=== PATIENT | female | born 1985 | race Hispanic/Latino ===

== ENCOUNTER 2017-10-05 19:08 | Inpatient (IN) | payer OTHER ==
[2017-10-05] VITALS (18 sets, daily range): BP systolic 154–174; BP diastolic 96–111
[~2017-10-05] VITALS: Ht 162.6 cm; Wt 85.3 kg
--- NOTE | 2017-10-05 18:20 | NUR ---
PATIENT TO UNIT IN , FROM HOME VIA ER REGISTRATION, ACCOMAPNIED BY OB RN. WEIGHT AND HEIGHT OBTAINED. ESCORTED TO ROOM 253. CLEAN CATCH SPECIMEN OF URINE EXPLAINED AND OBTAINED. EFM COMMENCED. PATIENT GIVES HISTORY OF BROWNISH MUCUS PER VAGINA AND MILD LOWER ABDOMINAL PAIN. DENIES LEAKING OF AMNIOTIC FLUID, HEADACHE, VISUAL CHANGES. WILL EVALUATE AND NOTIFY MD PAULINO. 1835 159/101. SAME RECHECKED 165/105. 1850 165/111 DR BOATENG ON UNIT NOTIFIED. REPORT GIVEN TO LONNY GARCIA.
--- NOTE | 2017-10-05 19:00 | NUR ---
185:REPORT RECEIVED BY LUISRN. 1899: DR. BOATENG AT BEDSIDE. SVE DONE BY . MD DISCUSSED PLAN OF CARE WITH PT AND PT VERBALIZED UNDERSTANDING. CALL LIGHT IN REACH.
[~2017-10-05 19:08] MED LIST: BACTRIM DS1 TAB OR; BACTRIM DS1 TAB PO; CEPHALEXIN500 MG OR; FERRETTS325 MG PO; FLEXERIL PO; IBUPROFEN600 MG PO; LORTAB 5 OR; MACROBID100 MG PO; MIRALAX3350 N1 PO; NAPROSYN500 MG PO; NO HOME MEDS; NORCO1 TA1 PO; PRENATABS PO; PRENATAL1 TA1 PO; PREVACID30 M2 PO; TRAMADOL HCL50 MG OR; ULTRAM50 MG PO; VALIUM5 MG PO; VICOPROFEN PO
[2017-10-05 19:16] LABS: BARBITURATES NEGATIVE (NEGATIVE); COCAINE NEGATIVE (NEGATIVE); METHADONE NEGATIVE (NEGATIVE); OXCYCODONE NEGATIVE (NEGATIVE); TETRAHYDROCANNABIONOL NEGATIVE (NEGATIVE); TRICYLIC ANTIDEPRESSANTS NEGATIVE (NEGATIVE)
[2017-10-05 19:19] LABS: URINE BILIRUBIN - DIPSTICK NEGATIVE (NEGATIVE); URINE BLOOD DIPSTICK NEGATIVE (NEGATIVE); URINE COLOR YELLOW; URINE GLUCOSE - DIPSTICK NEGATIVE (NEGATIVE); URINE KETONE TRACE mg/dL (NEGATIVE); URINE LEUK ESTERASE NEGATIVE (NEGATIVE); URINE NITRITE - DIPSTICK NEGATIVE (Negative); URINE PROTEIN - DIPSTICK 100 mg/dL (NEG-TRACE); URINE SPECIFIC GRAVITY >=1.030
[2017-10-05 19:24] LABS: URINE CLARITY CLEAR
[2017-10-05 19:37] LABS: URINE SQUAMOUS EPITHELIAL CELL FEW EPI/hpf (0-FEW)
[2017-10-05 20:10] LABS: HEMATOCRIT 32.4 % (37.0-47.0); HEMOGLOBIN 10.8 g/dl (12.0-16.0); IMMATURE GRANULOCYTES 0.5 % (0.0-1.0); MEAN CELL VOLUME 87.1 fL CALC (80.0-100.0); MEAN CORPUSCULAR HGB CONC 33.3 g/L CALC (32.0-36.0); NEUT# 6.86 thou/uL (2.00-7.15); RED BLOOD COUNT 3.72 mill/uL (4.20-5.60); RED CELL DISTRI WIDTH 13.5 % (11.5-15.5)
[2017-10-05 20:25] LABS: ALBUMIN 3.3 g/dL (3.2-5.0); ALKALINE PHOSPHATASE 222 u/l (38-126); ANION GAP 12 (6-22 (CALC)); BILIRUBIN, TOTAL 0.5 mg/dL (0.0-1.4); BUN 12 mg/dL (7-17); BUN/CREATININE RATIO 21 (12-20 (CALC)); CALCIUM 9.2 mg/dL (8.4-10.2); CARBON DIOXIDE 21 mmol/l (22-30); CHLORIDE 110 mmol/l (95-108); CREATININE 0.6 mg/dL (0.5-1.0); GFR > 60 ML/MIN (>=60 (CALC)); GFR FOR AFR.AMER. > 60 ML/MIN (>=60 (CALC)); GLUCOSE 81 mg/dL (65-105); POTASSIUM 4.2 mmol/l (3.5-5.1); SGOT/AST 31 u/l (14-36); SGPT/ALT 36 u/l (9-52); SODIUM 139 mmol/l (137-146); TOTAL PROTEIN 6.1 g/dL (6.3-8.2)
--- NOTE | 2017-10-05 21:03 | NUR ---
1934:MAGNESIUM SULFATE GIVEN PER DR. BOATENG. SEE EMAR. 1950: ULTRASOUND HERE AT THIS TIME WITH PT. 1999: DR. BOATENG AT BEDSIDE. ULTRASOUND RESULT PROVIDED BY DEBORAH TO . PLAN CARE DISCUSSED WITH PT AND PT VERBALIZED UNDERSTANDING. 2102: SVE DONE BY /
--- NOTE | 2017-10-05 21:06 | NUR ---
2106: IUPC AND FSE APPLIED BY DR. BOATENG. PT TOLERATED WELL.
--- NOTE | 2017-10-05 22:20 | NUR ---
2200: PT IS RESTING IN BED. PT STATED PAIN IS 7/10 IN LOWER ABDOMEN. PT REFUSED PAIN MEDICATION AT THIS TIME. PT TAKES DEEP BREATHS DURING CONTRACTIONS. PT DENIES ANY NEEDS AT THIS TIME. 2220: PITOCIN STARTED AT 2 MILIUNITS/MIN PER MD ORDERS.
--- NOTE | 2017-10-05 22:27 | NUR ---
2220: PITOCIN STARTED AO PER MD ALEXANDRE. 2227: PITOCIN STOPPED DUE TO A PROLONGED DECEL. PT TURN TO RIGHT SIDE AND O2 APPLIED BY NONREBREATHER MASK AT 10L/MIN.
[2017-10-05] MEDS ORDERED: ACYCLOVIR200 MG PO (22:51)
[2017-10-05] MEDS ORDERED: MULTI-VITAMIN GUMMIE PO (22:51)
[2017-10-06] VITALS (45 sets, daily range): BP systolic 122–191; BP diastolic 68–103
--- NOTE | 2017-10-06 01:23 | NUR ---
PT IS ON LEFT SIDE. PT STATED PAIN IS A 8/10 IN LOWER ABDOMEN. PT DENIES ANY NEEDS AT THIS TIME.
--- NOTE | 2017-10-06 01:43 | NUR ---
MOVED PT VIA WHEELCHAIR TO BR#1. PT TAKES DEEP BREATHS DURING CONTRACTIONS. ASSISTED PT TO BED. PT TURN TO RIGHT SIDE. CALL LIGHT IN REACH.
--- NOTE | 2017-10-06 02:00 | NUR ---
FHR 120, ACCEL PRESENT, NO DECEL, VARIABILITY MINIMAL, CONTRACTIONS ARE 2-3 MIN APART. PALPATED ABDOMEN AND CONTRACTIONS ARE MODERATE/STRONG ANF RETURN TO SOFT.
--- NOTE | 2017-10-06 03:29 | NUR ---
0310: CHRISTOPHER POON IN ROOM DISCUSSED WITH PT ABOUT EPIDURAL. PT VERBALIZED UNDERSTANDING. 0315:TIMEOUT 0323:NUMBING 0327: CATH IN TEST DOSE:0329
--- NOTE | 2017-10-06 04:47 | NUR ---
0441:PT IS PUSHING DURING CONTRACTIONS. A MALE WAS BORN. DR. BOATENG IN ROOM. 0447: PLACENTA OUT.
--- NOTE | 2017-10-06 06:35 | NUR ---
0627: RADHA SAENZ ASSISTED PT WITH FERNANDA CARE AND OOB TO SIT IN THE SIDE OF BED . PT STATED THAT SHE DID NOT HAVE PAIN AT THIS TIME. 0635: PT MOVED TO ROOM 204 VIA WHEELCHAIR BY RADHA SAENZ AND SCD APPLIED.
--- NOTE | 2017-10-06 06:50 | NUR ---
REPORT GIVEN TO RADHA ALMODOVAR.
--- NOTE | 2017-10-06 11:00 | NUR ---
PT C/O INCREASED UTERINE CRAMPING, RATING PAIN LEVEL AT 8:10. MEDICATED ORDERED WITH MOTRIN 600 MG PO. IV MAINTAINED ORDERED. BURROUGHS CATH PATENT FOR BLOOD TINGED URIEN, URINE OUTPUT WNL/
--- NOTE | 2017-10-06 12:00 | NUR ---
PT VERBALIZED RELIEF OF PAIN FROM MOTRIN GIVEN EARLIER. NOW RATING DISCOMFORT LEVEL AT 3:10. SITTING UP IN BED EATING LUNCH.
--- NOTE | 2017-10-06 12:15 | NUR ---
PERICARE GIVEN IN BED. LOCHIA RUB MOD. NO CLOTS, BURROUGHS CATH PATENT FOR BLOOD TINGED URINE.
--- NOTE | 2017-10-06 14:30 | NUR ---
PT RESTING QUIETLY IN BED. DENIES ANY C/O DISCOMFORT AT THIS TIME. VS CHARTED. INFANT IN NURSERY. CALLBELL WITHIN REACH.
--- NOTE | 2017-10-06 15:40 | NUR ---
VS CHARTED. PT RESTING QUIELTY IN BED WITH EYES CLOSED, RESPIRATIONS UNLABORED; REFLEXES NOT PERFORMED AT THIS TIME SINCE PT IS SLEEPING. BURROUGHS CATH CONTINUES TO DRAIN BLOOD TINGED URINE; OUTPUT CONTINUES TO BE WNL.
--- NOTE | 2017-10-06 16:50 | NUR ---
PT CONTINUES RESTING QUIETLY IN BED WITH EYES CLOSED, RESPIRATIONS UNLABORED. IV LR WITH PITOCIN 20 UNITES CONTINUES INFUSING AT 125ML/HR AND MAGNESIUM SULFATE INFUSING AT 2MG/HR ON INFUSION PUMPS. IV SITE IN RH REMAINS WITHOUT S/S OF IV COMPLICATIONS. VS CHARTED; REFLEXES AND CLONUS NOT CHECKED AT THIS TIME DUE TO PT SLEEPING.
--- NOTE | 2017-10-06 18:30 | NUR ---
PERICARE WAS GIVEN IN BED. FUNDUS REMAINS FIRM AT UMBILICUS; LOCHIA RUBRA IS MODERATE WITH NO CLOTS EXPRESSED. BURROUGHS CATH PATENT FOR BLOOD TINGED URINE; PT VOIDING WNL. VS CHARTED. REFLEXES ARE +2 BILATERALLY, NO CLONUS. IV LR WITH PITOCIN 20 UNITS INFUSING AT 125M L/HR AND MAGNESIUN SULFATE INFUSING AT 50ML (2GMS)/HR ON INFUSION PUMPS; IV SITE IN RH REMAINS WITHOIUT S/S OF IV COMPLICATIONS. PT ASSISTED OOB TO CHAIR, INFANT BROUGHT TO ROOM. PT NOW SITTING IN CHAIR WITH INFANT IN ARMS. DENIES ANY C/O DISCOMFORT AT THIS TIME. CALLBELL WITHIN REACH.
--- NOTE | 2017-10-06 19:15 | NUR ---
REPORT GIVEN TO Allan TOPETE RN.
--- NOTE | 2017-10-06 19:20 | NUR ---
REPORT RECEIVED FROM NISHI PATINO RN ON PT STATUS. MOTHER SITTING IN RECLINER HOLDING . NO COMPLAINTS.
--- NOTE | 2017-10-06 21:00 | NUR ---
PT SITTING IN RECLINER. IV'S CONTINUE TO INFUSE PER MED PUMPS. MAGNESIUM SULFATE AT 50ML/HR. PITOCIN INFUSING AT 125CC/HR. IV SITE WNL. BURROUGHS CATHETER DRAINING BLOOD TINGED URINE. MEASURING OUTPUT, VS AND IV INFUSION EVERY HOUR. BED IN LOW POSITION AND CALL LIGHT WITHIN REACH. AND SONS VISITING. MEDICATED WITH MOTRIN.
--- NOTE | 2017-10-06 22:10 | NUR ---
MOTHER . NO DISTRESS NOTED. STATES PAIN MEDICATION HELPED. BED IN LOW POSITION AND CALL LIGHT WITHIN REACH.
[2017-10-07] VITALS (12 sets, daily range): BP systolic 129–148; BP diastolic 76–93
--- NOTE | 2017-10-07 00:01 | NUR ---
CONTINUES ON HOURLY VS, URINE OUTPUT AND MAGNESIUM PROTOCOL. IV'S INFUSING PER MED PUMPS. URINE REMAINS BLOOD TINGED WITH OLD BLOOD. NO BRIGHT RED BLOOD NOTED IN URINE. BURROUGHS CATHETER ATTATCHED WITH STRAP. NO COMPLAINTS.
--- NOTE | 2017-10-07 03:59 | NUR ---
CBC AND MAGNESIUM LEVEL DRAWN FROM LEFT AC WITHOUT DIFFICULTY. MINIMAL BLEEDING AT SITE. PT DROWSY BUT AROUSES EASILY. REMAINS AT BEDSIDE IN CRIB.
[2017-10-07 05:20] LABS: HEMATOCRIT 26.6 % (37.0-47.0); HEMOGLOBIN 8.9 g/dl (12.0-16.0); IMMATURE GRANULOCYTES 0.5 % (0.0-1.0); MEAN CELL VOLUME 87.5 fL CALC (80.0-100.0); MEAN CORPUSCULAR HGB 29.3 pG CALC (26.0-32.0); MEAN CORPUSCULAR HGB CONC 33.5 g/L CALC (32.0-36.0); NEUT# 5.56 thou/uL (2.00-7.15); RED BLOOD COUNT 3.04 mill/uL (4.20-5.60); RED CELL DISTRI WIDTH 13.9 % (11.5-15.5)
--- NOTE | 2017-10-07 06:00 | NUR ---
PT SLEEPING. NO DISTRESS NOTED. RESP EVEN AND UNLABORED.
--- NOTE | 2017-10-07 07:00 | NUR ---
BEDSIDE REPORT COMPLETED WITH HALEY FERNANDEZ RN ON PT STATUS.
--- NOTE | 2017-10-07 08:05 | NUR ---
PT SITS QUIETLY IN BED. HOLDS INFANT, POSITIVE BONDING. PT DENIES VISUAL DISTURBANCE, DENIES EPIGASTRIC PAIN.
--- NOTE | 2017-10-07 09:00 | NUR ---
DR BOATENG IN TO SEE PT, BURROUGHS REMOVED, DRAINED BLOOD TINGED URINE, MD AWARE. IV, IV MAGNESIUM DISCONTINUED ORDERED.
--- NOTE | 2017-10-07 11:30 | NUR ---
PT SITS QUIELTY IN BED, HAS URINATED W/O PROBLEM, SL PINK TINGED URINE. DID FERNANDA CARE. C/O SL H/A.
--- NOTE | 2017-10-07 13:16 | NUR ---
PT SITS ON SIDE OF BED FEEDS , MEDICATED FOR H/A WITH MOTRIN.
--- NOTE | 2017-10-07 14:15 | NUR ---
PT DENIES H/A, DENIES VISUAL DISTURBANCE. WAS MEDICATED FOR H/A, AT 1315.
--- NOTE | 2017-10-07 15:13 | NUR ---
PT SHOWERED W/O PROBLEM.
--- NOTE | 2017-10-07 17:00 | NUR ---
DENIES H/A, GIVEN SNACK OF PUDDING.
--- NOTE | 2017-10-07 17:45 | NUR ---
PT SITS IN BED, HOLDING INFANT, STATES SHE WILL WATCH VIDEOS LATER.
--- NOTE | 2017-10-07 19:00 | NUR ---
REPORT TO ONCOMING NURSE.
--- NOTE | 2017-10-07 20:00 | NUR ---
BEDSIDE REPORT RECEIVED FROM RADHA DE LEON. PT SITTING UP ON EDGE OF BED HOLDING INFANT. DENIES PAIN CURRENTLY. REPSIRATIONS EVEN AND UNLABORED ON ROOM AIR. PT DECLINED STOOL SOFTNER; STATES THAT SHE HAS HAD A REGULAR BOWEL MOVEMENT THAT WAS SOFT. 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 PLAN OF CARE DISCUSSED. PT UPPER SORBIAN SPEAKING ONLY. ENCOURAGED TO VERBALIZE CONCERNS. STATES UNDERSTANDING. SAFETY MEASURES IN PLACE. CALL LIGHT SYSTEM REVIEWED AND IN REACH.
--- NOTE | 2017-10-08 00:04 | NUR ---
PT SITTING UP IN BED HOLDING BABY. C/O MILD HEADACHE; MOTRIN GIVEN. WILL REASSESS. NO OTHER COMPLAINTS OFFERED. SAFETY MEASURES IN PLACE. CALL LIGHT WITHIN REACH.
--- NOTE | 2017-10-08 03:18 | NUR ---
PT SLEEPING SOUNDLY. NO SIGNS OF DISTRESS. RESP EVEN AND UNLABORED.
[2017-10-08 05:00] VITALS: BP 178/86
--- NOTE | 2017-10-08 05:00 | NUR ---
Patient is resting quietly and in no acute distress. Call light within reach. Infant in open crib and resting quietly in no distress.
--- NOTE | 2017-10-08 06:15 | NUR ---
VS: 98.2ax-120-44; Weight: 6 lb 12 oz = 3068 grams. in no distress. Mom requested a bottle of Enfamil for which the baby took 2 oz - tolerated very well; no emesis. Two diapers had yellow-seedy stool and moderate amount of urine. Mom had changed the diapers. Continue to monitor ; positive bonding observed.
--- NOTE | 2017-10-08 06:16 | NUR ---
Above nursing note information was in regard to the Baby Boy Steward-Olivera; morning assessment and observations.
--- NOTE | 2017-10-08 08:00 | NUR ---
Head to toe assessment performed and was within normal range. Mom denied being in any major discomfort: pain 12/26. VS: 97.8-76-20; BP 178/86. Hep lock in right hand intact. Encouraged mom to eat breakfast, drink fluids, and may take a shower this a.m. She speaks a little German. Positive bonding observed as she held her infant and fed him a bottle of Enfamil.
[2017-10-08 09:30] VITALS: BP 153/94
--- NOTE | 2017-10-08 11:30 | NUR ---
In preparation for Discharge, a staff interpreter came up from the Emergency Department. Patient received the flu and Tdap vaccines as verified by her Consent Forms. Copies of the Discharge papers given to mom; she verified that she had the correct infant, ID Bracelets matched, and she signed the infant's footprint sheet. Lunch arrived, her and two sons are here to take her and the baby home. Pending discharge.
[2017-10-08] MEDS ORDERED: LABETALOL100 MG PO (11:50)
[2017-10-08] MEDS ORDERED: IBUPROFEN600 MG PO (11:50)
--- NOTE | 2017-10-08 13:00 | NUR ---
Mom and baby were both discharged home in good condition. No problems encountered, no complaints voiced by patient or family members. Transported via wheelchair, the mom as she carried the infant in the car seat, downstairs to their vehicle. Mom had all of her Discharge Instructions and prescriptions.
== END 2017-10-08 13:00 | disposition home or self-care (01) | DRG 774 ==
LOC: OB 19:08 → OBOP 19:08 → OB 19:10
PROVIDERS: ADMIT Obstetrics & Gynecology; ATTEND Obstetrics & Gynecology
PROC: 3E0P3VZ Introduction of Hormone into Female Reproductive, Percutaneous Approach (ICD-10-PCS; principal; 2017-10-05)
PROC: 10907ZC Drainage of Amniotic Fluid, Therapeutic from Products of Conception, Via Natural or Artificial Opening (ICD-10-PCS; 2017-10-05)
PROC: 10E0XZZ Delivery of Products of Conception, External Approach (ICD-10-PCS; 2017-10-06)
DX: O14.14 Severe pre-eclampsia complicating childbirth (principal); O98.32 Other infections with a predominantly sexual mode of transmission complicating childbirth; A60.00 Herpesviral infection of urogenital system, unspecified; Z37.0 Single live birth; Z3A.39 39 weeks gestation of pregnancy
CPT/HCPCS: J2540

== ENCOUNTER 2019-11-03 10:16 | Emergency (ER) | payer SELFPAY ==
[~2019-11-03] VITALS: Ht 162.6 cm; Wt 81.0 kg
[~2019-11-03 10:16] MED LIST changes: +ACYCLOVIR200 MG PO; +LABETALOL100 MG PO; +MULTI-VITAMIN GUMMIE PO
[2019-11-03] MEDS ORDERED: CYCLOBENZAPR5 MG PO (11:30)
[2019-11-03 12:25] VITALS: BP 131/73
== END 2019-11-03 12:25 | disposition home or self-care (01) | DRG 552 ==
LOC: ED 10:16
DX: M54.32 Sciatica, left side (principal)

== ENCOUNTER 2019-12-13 | Emergency (ER) | payer SELFPAY ==
[~2019-12-13] MED LIST changes: +CYCLOBENZAPR5 MG PO
[2019-12-13] MEDS ORDERED: KEFLEX500 M1 PO (21:32)
[2019-12-13] MEDS ORDERED: HYDROCO/APAP1 TA9 PO (21:32)
== END 2019-12-13 22:30 | disposition home or self-care (01) | DRG 603 ==
DX: L02.31 Cutaneous abscess of buttock (principal)

== ENCOUNTER 2021-02-17 | Emergency (ER) | payer SELFPAY ==
[~2021-02-17] MED LIST changes: +HYDROCO/APAP1 TA9 PO; +KEFLEX500 M1 PO
== END 2021-02-17 20:03 | disposition home or self-care (01) | DRG 866 ==
DX: B34.9 Viral infection, unspecified (principal); Z20.822 Contact with and (suspected) exposure to COVID-19

== ENCOUNTER 2021-07-09 17:05 | Emergency (ER) | payer OTHER ==
[~2021-07-09] VITALS: Ht 162.6 cm; Wt 75.0 kg
[2021-07-09] MEDS ORDERED: AMOXICILLIN500 MG PO (21:47)
[2021-07-09 21:49] VITALS: BP 132/85
== END 2021-07-09 22:25 | disposition home or self-care (01) | DRG 179 ==
LOC: ED 17:05
DX: U07.1 COVID-19 (principal)

== ENCOUNTER 2022-12-04 15:19 | Emergency (ER) | payer SELFPAY ==
[2022-12-04] VITALS (12 sets, daily range): BP systolic 110–130; BP diastolic 73–96
[~2022-12-04] VITALS: Ht 162.6 cm; Wt 81.0 kg
[~2022-12-04 15:19] MED LIST changes: +AMOXICILLIN500 MG PO
[2022-12-04 18:32] LABS: BASO% 0.4 % (0-3); EOS% 1.3 % (0-8); IMMATURE GRANULOCYTES 0.2 % (0.0-5.0); LYMPH% 19.3 % (15-41); MEAN CELL VOLUME 92.1 fL CALC (80.0-100.0); MEAN CORPUSCULAR HGB 31.8 pG CALC (26.0-32.0); MEAN CORPUSCULAR HGB CONC 34.5 g/dL CAL (32.0-36.0); MONO% 5.7 % (2-13); NEUT# 6.5 thou/uL (2.00-7.15); NEUT% 73.1 % (42-76); RED BLOOD COUNT 3.81 mill/uL (4.20-5.60); RED CELL DISTRI WIDTH 11.9 % (11.5-15.5)
[2022-12-04 18:38] LABS: HEMATOCRIT 35.1 % (37.0-47.0); HEMOGLOBIN 12.1 g/dl (12.0-16.0)
[2022-12-04 18:40] LABS: HCG SERUM/URINE (NEG/POS) POSITIVE (NEGATIVE)
[2022-12-04 18:41] LABS: ANION GAP 10 (6-22 (CALC)); BILIRUBIN, TOTAL 0.3 mg/dL (0.0-1.4); BUN 8 mg/dL (7-17); BUN/CREATININE RATIO 15 (12-20 (CALC)); CARBON DIOXIDE 22 mmol/l (22-30); CHLORIDE 107 mmol/l (95-108); CREATININE 0.5 mg/dL (0.5-1.0); GFR FOR AFR.AMER. > 60 ML/MIN (>=60 (CALC)); GFR OTHER RACES > 60 ML/MIN (>=60 (CALC)); POTASSIUM 3.6 mmol/l (3.5-5.1); SGOT/AST 23 u/l (14-36); SODIUM 135 mmol/l (137-146)
[2022-12-04 18:42] LABS: ALKALINE PHOSPHATASE 76 u/l (38-126)
[2022-12-04 21:06] LABS: URINE BILIRUBIN - DIPSTICK NEGATIVE (NEGATIVE); URINE BLOOD DIPSTICK MODERATE (NEGATIVE); URINE COLOR YELLOW; URINE GLUCOSE - DIPSTICK NEGATIVE (NEGATIVE); URINE KETONE 15 mg/dL (NEGATIVE); URINE PROTEIN - DIPSTICK NEGATIVE (NEG-TRACE); URINE SPECIFIC GRAVITY >=1.030; URINE UROBILINOGEN - DIPSTICK 0.2 E.U./dL (0.2)
[2022-12-04 21:07] LABS: URINE LEUK ESTERASE MODERATE (NEGATIVE); URINE NITRITE - DIPSTICK NEGATIVE (Negative)
[2022-12-04 21:14] LABS: URINE SQUAMOUS EPITHELIAL CELL FEW EPI/hpf (0-FEW)
[2022-12-04] MEDS ORDERED: KEFLEX500 MG PO (21:47)
[2022-12-04] MEDS ORDERED: ONDANSETRON4 MG PO (22:10)
[2022-12-04] MEDS ORDERED: CORTISPORIN OTI10 M2 AD (22:25)
== END 2022-12-04 23:05 | disposition home or self-care (01) | DRG 690 ==
LOC: ED 15:19
PROVIDERS: Nurse Practitioner
DX: N39.0 Urinary tract infection, site not specified (principal); H60.91 Unspecified otitis externa, right ear

== ENCOUNTER 2024-10-26 09:39 | Emergency (ER) | payer SELFPAY ==
[~2024-10-26] VITALS: Ht 162.6 cm; Wt 77.0 kg
[~2024-10-26 09:39] MED LIST changes: +CORTISPORIN OTI10 M2 AD; +KEFLEX500 MG PO; +ONDANSETRON4 MG PO
[2024-10-26] MEDS ORDERED: SODIUM CHLORIDE 0.9% 1,000 ML IV ONE (09:50)
[2024-10-26] MEDS ORDERED: METOCLOPRAMIDE HCL 10 MG/2 ML SDV IV ONE (09:50)
[2024-10-26] MEDS ORDERED: DiphenhydrAMINE HCL 50 MG/ML SDV IV ONE (09:50)
[2024-10-26] MEDS ORDERED: KETOROLAC TROMETHAMINE 30 MG/ML SDV IV ONE (09:50)
[2024-10-26 10:19] LABS: BASO% 0.4 % (0-3); EOS% 2.3 % (0-8); LYMPH% 19.5 % (15-41); MEAN CELL VOLUME 94.6 fL CALC (80.0-100.0); MEAN CORPUSCULAR HGB 32.1 pG CALC (26.0-32.0); MEAN CORPUSCULAR HGB CONC 33.9 g/dL CAL (32.0-36.0); MONO% 3.6 % (2-13); NEUT# 5.53 thou/uL (2.00-7.15); NEUT% 74.2 % (42-76); RED BLOOD COUNT 4.43 mill/uL (4.20-5.60); RED CELL DISTRI WIDTH 11.7 % (11.5-15.5)
[2024-10-26 10:26] LABS: HEMATOCRIT 41.9 % (37.0-47.0); HEMOGLOBIN 14.2 g/dl (12.0-16.0)
[2024-10-26 10:41] LABS: ALBUMIN 4.8 g/dL (3.2-5.0); CREATININE 0.7 mg/dL (0.5-1.0); POTASSIUM 3.8 mmol/l (3.5-5.1); TOTAL PROTEIN 7.8 g/dL (6.3-8.2)
[2024-10-26] MEDS ORDERED: DEXAMETHASONE SOD. PHOSPHATE 10 MG/ML VIAL IV ONE (13:05)
[2024-10-26 13:14] VITALS: BP 109/74
== END 2024-10-26 13:18 | disposition home or self-care (01) | DRG 103 ==
LOC: ED 09:39
PROVIDERS: Family Medicine
DX: R51.9 Headache, unspecified (principal)
CPT/HCPCS: J1100; J1200; J2765